=== PATIENT | female | born 1950 | race Caucasian/White ===

== ENCOUNTER → 2017-04-26 | Outpatient (CLI) | payer OTHER ==
[~2017-04-26] MED LIST: ADVAIR HFA 230M12 GM INH; ADVAIR HFA115 MCG/21; CALCIUM 500 +1 EAC5 PO; CENTRUM SILVER1 EAC4 PO; FERROUS SULFAT134 M1 PO; NORCO 5-325 TA1 EACH PO; NORVASC5 MG PO; OMEPRAZOLE20 M1 PO; PREVALITE PACKET4 GM PO; PRINIVIL20 M1 PO; PROTONIX40 M1 PO; VITAMIN B-121000 MC3 PO; VITAMIN D1000 UNI1 PO; WELLBUTRIN XL300 MG PO
--- NOTE | ~2017-04-26 | EKG ---
[address] [address] ELECTROCARDIOGRAM REPORT Name: MACIE PATINO Room #: [facility]#: [id number] Admission: 04/26/17 Attend Phys: Hunter Katz, Discharge: Date of : 54 Report #: [id number] THIS REPORT FOR: //name// [facility] Test Date: 2017-04-26 Test Time: 07:50:23 Pat Name: MACIE PATINO Department: Room: Gender: F Assistant Activities Director: DOLORES : 1950 Requested By: Hunter Katz Order Number: [id number] MD: Jaime Syed Measurements Intervals [place] Rate: 86 P: -11 ID: [id number] QRS: 58 QRSD: 88 T: 32 QT: 359 QTc: 430 Interpretive Statements Sinus rhythm No significant abnormality Compared to ECG 07/05/2014 06:51:31 Sinus tachycardia no longer present Electronically Signed On 04-26-2017 8:32:56 CDT by Jaime Syed [email or web address] <ELECTRONICALLY SIGNED> By: Jaime Syed MD, [facility] 04/26/17 0832 0750 0750 Jaime Syed MD, FACC /EPI
== END ==
LOC: RAD 07:16
DX: Z01.818 Encounter for other preprocedural examination (principal); J98.11 Atelectasis; M20.22 Hallux rigidus, left foot; M25.775 Osteophyte, left foot; M25.572 Pain in left ankle and joints of left foot

== ENCOUNTER 2017-05-06 05:22 | Day surgery (SDC) | payer OTHER ==
[~2017-05-06] VITALS: Ht 157.5 cm; Wt 73.9 kg
[~2017-05-06 05:22] MED LIST changes: -ADVAIR HFA 230M12 GM INH; -CENTRUM SILVER1 EAC4 PO; -PROTONIX40 M1 PO; -VITAMIN B-121000 MC3 PO; -VITAMIN D1000 UNI1 PO
[2017-05-06 07:37] VITALS: BP 141/92
== END 2017-05-06 10:50 | disposition home or self-care (01) ==
LOC: OR 05:22 → TBA 05:23 → OR 10:50
DX: M20.22 Hallux rigidus, left foot (principal); M25.775 Osteophyte, left foot; M25.572 Pain in left ankle and joints of left foot; I10 Essential (primary) hypertension; J45.909 Unspecified asthma, uncomplicated; K21.9 Gastro-esophageal reflux disease without esophagitis; M19.90 Unspecified osteoarthritis, unspecified site; E66.09 Other obesity due to excess calories; Z79.899 Other long term (current) drug therapy; Z90.710 Acquired absence of both cervix and uterus; Z98.890 Other specified postprocedural states; Z87.442 Personal history of urinary calculi; Z96.653 Presence of artificial knee joint, bilateral
CPT/HCPCS: 50010; 50101; 50331; 50386; 53010; 55430; 56526; 57091; 62110; 62850; 70005

== ENCOUNTER → 2017-07-08 | Outpatient (CLI) | payer OTHER | LOC: RAD 07:59 | DX: Z12.31 Encounter for screening mammogram for malignant neoplasm of breast (principal) ==

== ENCOUNTER → 2017-10-01 | Outpatient (CLI) | payer OTHER ==
[~2017-10-01] VITALS: Ht 154.9 cm; Wt 75.3 kg
[~2017-10-01] MED LIST changes: +ADVAIR HFA 230M12 GM INH
--- NOTE | ~2017-10-01 | P ---
[facility] [place] [address] PROCEDURE REPORT Name: MACIE PATINO Room #: REG [facility]#: [id number] Admission: 10/01/17 Attend Phys: Mathew Hoffman MD Discharge: Date of : 54 Report #: [id number] THIS REPORT FOR: //name// CC: Jovany Hoffman BRIEF HISTORY: The patient is a 67-year-old woman with history of reflux disease. Good number of years ago, she had a repair of hiatus hernia and David fundoplication. However, she has developed reflux symptoms and there has been a breakdown of her previous surgical repairs. She presents for recurrent solid food dysphagia with last dilation about 2 years ago. She also does have reflux symptoms and uses omeprazole about 3 times weekly. PREOPERATIVE DIAGNOSIS: Dysphagia and reflux. POSTOPERATIVE DIAGNOSES: 1. Distal esophageal ulcer, gastroesophageal junction. 2. Large hiatus hernia, 6-7 cm. 4. Foreshortened esophagus secondary to her hiatus hernia. 5. Dysphagia. MEDICATIONS: Deep sedation with propofol per Anesthesia. SPECIMEN: Biopsies of esophageal ulcer. ESTIMATED BLOOD LOSS: 3 mL. PROCEDURE: EGD with biopsy and Savary dilation of esophagus over a guidewire. FINDINGS: Prior to propofol sedation, procedure of upper endoscopy and dilation was reviewed with the patient as well as potential risks and its complications. She indicates she understands and desires that we proceed. DESCRIPTION OF PROCEDURE: With the patient in left decubitus position, the Olympus video endoscope was inserted in the cervical esophagus under direct vision without difficulty. Examination of this organ through its entire length revealed normal esophageal mucosa in the mid to proximal esophagus. Distally, there was noted to be tortuosity in esophagus with the GE junction at about 29 cm. An esophageal ulcer was seen at the GE junction, it was of moderate depth and had a smooth and benign appearance. Biopsies were obtained. The scope was advanced to the tortuous GE junction into a moderately large hiatus hernia, which was at least 6 cm in greatest dimension. Mucosa and hernia was unremarkable. Upon retroflexion, no mass lesions were seen. The scope was advanced in the distal stomach, was examined on end view as well as retroflexed views. The mucosa was normal. The pylorus, duodenal bulb and postbulbar duodenal sweep down to the third portion were unremarkable. The duodenal [address] [address] PROCEDURE REPORT Name: ISABELMatthewMACIE Room #: REG [facility]#: [id number] Admission: 10/01/17 Attend Phys: Mathew Hoffman MD Discharge: Date of : 54 Report #: [id number] papilla was identified and noted to be unremarkable. At that point, the scope was slowly withdrawn and careful circumferential views confirmed the above finding. As we withdrew the scope, a guidewire was inserted and the scope was withdrawn over the wire. We then advanced a 17 mm Savary dilator over the guidewire and passed it the entire length without difficulty. Dilator and wire were withdrawn. The patient tolerated the procedure well. CONDITION OF THE PATIENT UPON DISCHARGE: Following procedure, the patient drowsy, aroused, conversant and will be discharged home when fully ambulatory. INSTRUCTIONS TO THE PATIENT AND FAMILY AT THE TIME OF DISCHARGE: We will follow up on biopsies obtained today. Ulcers are likely result of poorly controlled reflux in spite of her previous surgery. I did not see a definite stricture on exam today. Her dysphagia may in part be related to a tortuous esophagus, which is secondary to her hiatus hernia. At this point in time, we will have her use pantoprazole 40 mg daily for at least 8 weeks. Thereafter, she can try to reduce as tolerated, but should take the minimal dose to completely control her symptoms. Repeat surgery would be a consideration as well, which may be helpful to her. If she does not have improvement of symptoms or recurrence of symptoms, she should return to the office for followup. By: 0919 1435 Mathew Hoffman MD /sher
== END | disposition home or self-care (01) ==
LOC: GI 07:20
DX: K22.10 Ulcer of esophagus without bleeding (principal); K44.9 Diaphragmatic hernia without obstruction or gangrene; K22.8 Other specified diseases of esophagus; R13.19 Other dysphagia; I10 Essential (primary) hypertension; J45.909 Unspecified asthma, uncomplicated; F41.9 Anxiety disorder, unspecified; F32.9 Major depressive disorder, single episode, unspecified; M19.90 Unspecified osteoarthritis, unspecified site; G47.33 Obstructive sleep apnea (adult) (pediatric); Z98.890 Other specified postprocedural states; Z87.442 Personal history of urinary calculi; Z96.653 Presence of artificial knee joint, bilateral; Z90.710 Acquired absence of both cervix and uterus

== ENCOUNTER 2017-12-01 05:23 | Day surgery (SDC) | payer OTHER ==
[~2017-12-01] VITALS: Ht 157.5 cm; Wt 76.2 kg
[~2017-12-01 05:23] MED LIST changes: +CENTRUM SILVER1 EAC4 PO; +PROTONIX40 M1 PO; +VITAMIN B-121000 MC3 PO; +VITAMIN D1000 UNI1 PO
[2017-12-01 07:00] VITALS: BP 123/94
[2017-12-01 07:16] LABS: CALCIUM 9.7 mg/dL (8.5-10.1); POTASSIUM 4.3 mmol/L (3.5-5.1)
== END 2017-12-01 11:08 | disposition home or self-care (01) ==
LOC: TBA 05:23 → OR 05:23
PROVIDERS: Anesthesiology
DX: M20.21 Hallux rigidus, right foot (principal); M21.621 Bunionette of right foot; M25.774 Osteophyte, right foot; M25.571 Pain in right ankle and joints of right foot; I10 Essential (primary) hypertension; J45.909 Unspecified asthma, uncomplicated; K21.9 Gastro-esophageal reflux disease without esophagitis; F32.9 Major depressive disorder, single episode, unspecified; F41.9 Anxiety disorder, unspecified; G47.33 Obstructive sleep apnea (adult) (pediatric); Z90.710 Acquired absence of both cervix and uterus; Z96.653 Presence of artificial knee joint, bilateral; Z87.442 Personal history of urinary calculi; Z86.2 Personal history of diseases of the blood and blood-forming organs and certain disorders involving the immune mechanism; Z88.0 Allergy status to penicillin; Z88.8 Allergy status to other drugs, medicaments and biological substances; Z79.899 Other long term (current) drug therapy
CPT/HCPCS: 50010; 50101; 50386; 53341; 55430; 56524; 56526; 57091; 57178; 62110; 62850; 70005

== ENCOUNTER → 2018-02-10 | Outpatient (CLI) | payer OTHER | LOC: MRI 07:26 | DX: M19.071 Primary osteoarthritis, right ankle and foot (principal); M20.22 Hallux rigidus, left foot; R60.0 Localized edema; F43.8 Other reactions to severe stress; Z98.890 Other specified postprocedural states ==

== ENCOUNTER → 2018-04-13 | Outpatient (CLI) | payer OTHER | LOC: MRI 07:18 | DX: M47.816 Spondylosis without myelopathy or radiculopathy, lumbar region (principal); M51.27 Other intervertebral disc displacement, lumbosacral region; G89.29 Other chronic pain; R32 Unspecified urinary incontinence; M53.3 Sacrococcygeal disorders, not elsewhere classified ==

== ENCOUNTER → 2018-04-30 | Outpatient (CLI) | payer OTHER ==
--- NOTE | 2018-05-02 10:08 | SLE ---
[facility] [place] [address] POLYSOMNOGRAPHY STUDY Name: MACIE PATINO Room #: REG [facility]#: [id number] Admission: 04/30/18 ������������������ Attend Phys: Don Chan MD Discharge: ������������������ Date of : 54 Report #: [id number] THIS REPORT FOR: //name// CC: Jovany Chan MD DATE OF SERVICE: 04/30/2018 ATTENDING PHYSICIAN: Dr. Don Chan. The patient is a 67-year-old who weighs 169 pounds with a BMI of 31.9. The patient's [place] score was 11. The patient underwent a sleep study at [facility]. This was a diagnostic study. During the night study, the patient spent 465 minutes in bed and slept for 178 minutes with a poor sleep efficiency of 38%. Sleep latency was prolonged at 85 minutes with a REM latency of 359 minutes, which was prolonged as well. Overall sleep architecture showed increased stage 1 sleep, reduced stage 2 sleep, absent N3 sleep and reduced REM sleep, which was only 9% of the total sleep time. During the night study, the patient had no obstructive, mixed or central apneas. There were 33 hypopneas. The patient's apnea-hypopnea index was 11 per hour with a REM index of 25 per hour. The patient's supine index was 22 per hour. EKG monitoring revealed an average heart rate of 84 beats per minute with no arrhythmias observed. PLMS were seen at an index of 68 per hour and 14.8 per hour caused EEG arousals. Nocturnal oximetry study revealed an average oxygen saturation of 95% with the lowest of 89%. Only 0.1 minutes were spent in oxygen saturation of less than 89%. Due to low AHI and poor sleep efficiency, the patient did not meet the split night criteria for CPAP initiation. IMPRESSION: 1. Mild sleep apnea-hypopnea syndrome with moderate increase during supine and REM sleep. Total apnea-hypopnea index is 11 per hour with a REM apnea-hypopnea index of 25 per hour and a supine apnea-hypopnea index of 22 per hour. 2. Severe periodic limb movements of sleep. 3. Severely reduced sleep efficiency of only 38% due to sleep onset and sleep maintenance insomnia. 4. No clinically significant nocturnal hypoxia. [address] [address] POLYSOMNOGRAPHY STUDY Name: MACIE PATINO Room #: REG [facility]#: [id number] Admission: 04/30/18 ������������������ Attend Phys: Don Chan MD Discharge: ������������������ Date of : 54 Report #: [id number] RECOMMENDATIONS: 1. The patient's sleep efficiency was poor which could have underestimated the severity of sleep apnea. Patient is clinically symptomatic and has wbiy-uw-ayaikfjy sleep apnea. I would recommend treating the patient's sleep apnea with either oral appliance or a trial of CPAP titration. 2. Avoid supine sleep. 3. If the patient undergoes CPAP titration, then follow up in 4-6 weeks to assess compliance and to document clinical improvement. 4. Weight loss is advised. 5. Avoid [employer] depressants. 6. Cautioned regarding driving until symptoms of sleep apnea have resolved with above recommendations. 7. The patient's insomnia should also be followed up. If it persists despite treatment of the patient's underlying sleep apnea, then it should be treated according to the etiology. 8. The patient should also be further evaluated for symptoms of restless legs during the day. ��������������������������������������������� <ELECTRONICALLY SIGNED> ���������������������������������������� By: Tono Philippe MD ��������������������������������������������� 05/02/18 1008 1653 1703 Tono Philippe MD /nt
== END ==
LOC: SLEEPLAB 16:14
DX: G47.33 Obstructive sleep apnea (adult) (pediatric) (principal); G47.61 Periodic limb movement disorder; Z88.8 Allergy status to other drugs, medicaments and biological substances; Z88.0 Allergy status to penicillin

== ENCOUNTER → 2018-05-02 | Outpatient (CLI) | payer OTHER | LOC: MRI 13:56 | DX: M47.14 Other spondylosis with myelopathy, thoracic region (principal); M47.812 Spondylosis without myelopathy or radiculopathy, cervical region; M48.03 Spinal stenosis, cervicothoracic region; M50.221 Other cervical disc displacement at C4-C5 level; M25.78 Osteophyte, vertebrae ==

== ENCOUNTER → 2018-05-17 | Outpatient (CLI) | payer OTHER ==
--- NOTE | 2018-05-17 10:45 | 2DMMODE ---
[facility] [address] [place] [address] 2 D/M-MODE ECHOCARDIOGRAM Name: MACIE PATINO Room #: REG [facility]#: [id number] ������������� Admission: 05/17/18 ������������� Attend Phys: Mau Dawson Discharge: ��� ������������� ��� Date of : 54 Date of Service: 05/17/18 1045 �� Report #: [id number] �������� ��������������������������������������������[id number] THIS REPORT FOR: //name// APPROVED REPORT Study performed: 05/17/2018 10:08:17 EXAM: Comprehensive 2D, Doppler, and color-flow Echocardiogram Patient Location: Out-Patient Status: routine BSA: 1.76 HR: 93 bpm BP: 124/90 mmHg Rhythm: NSR Other Information Study Quality: Adequate Indications SVT. Pre-Op ablation. Hx: HTN 2D Dimensions RVDd: 31.55 mm IVSd: 10.35 (7-11mm) LVOT Diam: 18.85 (18-24mm) LVDd: 43.41 mm PWd: 10.12 (7-11mm) Ascending Ao: 33.96 (22-36mm) LVDs: 31.04 (25-40mm) Aortic Root: 32.70 mm Volumes Left Atrial Volume (Systole) Single Plane 4CH: 32.94 mL Single Plane 2CH: 32.76 mL LA ESV Index: 20.00 mL/m2 Aortic Valve AoV Peak Hero.: 1.43 m/s AO Peak Gr.: 8.19 mmHg LVOT Max P.88 mmHg LVOT Max V: 1.31 m/s SHAMAR Vmax: 2.56 cm2 Mitral Valve E/A Ratio: 0.9 MV Decel. Time: 152.58 ms MV E Max Hero.: 0.74 m/s [facility] [address] [place] [address] 2 D/M-MODE ECHOCARDIOGRAM Name: CAREYMACIE K Room #: [facility]#: [id number] ������������� Admission: 05/17/18 ������������� Attend Phys: Mau Dawson Discharge: ��� ������������� ��� Date of : 54 Date of Service: 05/17/18 1045 �� Report #: [id number] �������� ��������������������������������������������[id number] MV A Hero.: 0.86 m/s MV PHT: 44.25 ms IVRT: 96.89 ms Pulmonary Valve PV Peak Hero.: 0.99 m/s PV Peak Gr.: 3.92 mmHg Pulmonary Vein P Vein S: 0.84 m/s P Vein A: 0.40 m/s P Vein D: 0.42 m/s P Vein A Dur.: 83.0 msec P Vein S/D Ratio: 2.00 Tricuspid Valve TR Peak Hero.: 2.21 m/s RAP Estimate: 5.00 mmHg TR Peak Gr.: 19.48 mmHg PA Pressure: 24.00 mmHg Left Ventricle The left ventricle is normal size. There is normal LV segmental wall motion. Mild basal septal hypertrophy is present. Left ventricular systolic function is normal. LVEF is 55%. Mild diastolic dysfunction is present (impaired relaxation pattern). Right Ventricle The right ventricle is normal size. The right ventricular systolic function is normal. Atria The left atrium size is normal. The right atrium size is normal. Aortic Valve Aortic valve is trileaflet, mildly thickened. No aortic regurgitation is present. There is no aortic valvular stenosis. Mitral Valve The mitral valve is normal in structure. There is no mitral valve regurgitation noted. No evidence of mitral valve stenosis. Tricuspid Valve The tricuspid valve is normal in structure. Mild tricuspid regurgitation. Estimated PAP is 25mmHg. Pulmonic Valve The pulmonary valve is normal in structure. Trace pulmonic regurgitation. [address] [address] 2 D/M-MODE ECHOCARDIOGRAM Name: MACIE PATINO Jenna [facility] [id number] ������������� Admission: 05/17/18 ������������� Attend Phys: [facility]au Peña [facility] Discharge: ��� ������������� ��� Date of : 54 Date of Service: 05/17/18 1045 �� Report #: [id number] �������� ��������������������������������������������[id number] [employer] The aortic root is normal in size. The ascending aorta is normal in size. IVC is normal in size and collapses >50% with inspiration. Pericardium There is no pericardial effusion. <Conclusion> The left ventricle is normal size. Left ventricular systolic function is normal. LVEF is 55%. Mild diastolic dysfunction is present (impaired relaxation pattern). The right ventricle is normal size. The left atrium size is normal. Aortic valve is trileaflet, mildly thickened. There is no aortic valvular stenosis. There is no mitral valve regurgitation noted. Mild tricuspid regurgitation. Estimated PAP is 25mmHg. The aortic root is normal in size. There is no pericardial effusion. ��������������������������������������������� <ELECTRONICALLY SIGNED> ���������������������������������������� By: Sergey Garcia MD, FACC ��������������������������������������������� 05/17/18 1045 1045 1045 Sergey Garcia MD, FACC /INF
== END ==
LOC: CV 09:55
DX: I07.1 Rheumatic tricuspid insufficiency (principal); I11.9 Hypertensive heart disease without heart failure

== ENCOUNTER → 2018-06-09 | Outpatient (CLI) | payer OTHER ==
[~2018-06-09] VITALS: Ht 154.9 cm; Wt 77.1 kg
[~2018-06-09] MED LIST changes: +AMITRIPTYLINE H10 M3 PO; +COLESTIPOL HCL1 G1 PO; +MOBIC7.5 MG PO; +OXYBUTYNIN 5 MG5 M2 PO; +ZANTAC 150MG T150 MG PO
--- NOTE | ~2018-06-09 | P ---
[facility] [place] [address] PROCEDURE REPORT Name: MACIE PATINO Room #: REG [facility]#: [id number] Admission: 06/09/18 ������������������ Attend Phys: Mau Dawson MD Discharge: ������������������ Date of : 54 Report #: [id number] THIS REPORT FOR: //name// CC: Mau Nova PREOPERATIVE DIAGNOSIS: Supraventricular tachycardia. POSTOPERATIVE DIAGNOSES: 1. Typical atrioventricular keisha reentrant tachycardia. 2. Atypical atrioventricular keisha reentrant tachycardia. HISTORY: The patient is a 67-year-old female with a history of palpitations with evidence of SVT on a recent rn cardiac rehab that is consistent with AV keisha reentrant tachycardia. She is here for EP study and possible ablation. PROCEDURES PERFORMED: 1. SVT ablation, CPT code 37677. 2. EP with left atrial pacing and recording, CPT code 92724. 3. Programmed stimulation pacing after IV drug infusion, CPT code 06396. 4. 3D mapping, CPT code 59499. ANESTHESIA: The patient underwent MAC anesthesia with no anesthesia related complications. DESCRIPTION OF PROCEDURE: The patient underwent informed consent. We discussed the details of the procedure including the risks, which include but not limited to bleeding, vascular damage, cardiac perforation, stroke, [place] as well as damage to the kake conduction system. She understood these risks and is willing to proceed. The patient was brought to the EP laboratory in a fasting and unsedated state, prepped and draped in a sterile fashion. I injected lidocaine to the bilateral groin regions, obtained access to the bilateral femoral veins and I placed an 8 and 6-Gabonese short sheath in the right femoral vein and a 6 and 7-Gabonese short sheath in the left femoral vein using the modified Seldinger technique. Next, under fluoroscopy, I placed a decapolar catheter easily in the coronary sinus and 3 quadripolar catheters at the HRA, His and RV positions. While placing catheters, the patient did go into SVT and this was consistent with AV keisha reentrant tachycardia. I was able to perform ventricular entrainment and there was evidence of a VAHV response. I was able to terminate this tachycardia with pacing. This tachycardia demonstrated a tachycardia cycle length of 435 milliseconds, a septal VA time of 35 milliseconds and again a VAHV response was obtained with ventricular entrainment. Post-termination of this tachycardia, she was in sinus rhythm with sinus cycle length of 600 milliseconds, LA interval 140 milliseconds, QRS duration 80 milliseconds, QT interval 350 milliseconds, AH interval 80 milliseconds, HV interval 40 milliseconds. Atrial pacing was [facility] [address] [place] [address] PROCEDURE REPORT Name: MACIE PATINO Room #: REG [facility]#: [id number] Admission: 06/09/18 ������������������ Attend Phys: Mau Dawson MD Discharge: ������������������ Date of : 54 Report #: [id number] performed and AV block was noted at 370 milliseconds. Single AV keisha echoes were delivered and then the patient went into SVT #2. This SVT demonstrated a tachycardia cycle length of 520 milliseconds, a septal VA time of 40 milliseconds and ventricular entrainment showed a VAHV response and PPI minus tachycardia cycle length of 300 milliseconds. This second SVT was consistent with atypical AV keisha reentrant tachycardia. Next, ventricular pacing was performed and VA block was noted at 400 milliseconds. Ventricular ERP was noted at 220 milliseconds at a [address] cycle length. Thus, with ventricular entrainment, I would see frequent single AV keisha echoes and occasionally this would induce AVNRT. With additional pacing, I induced a third SVT. This demonstrated a tachycardia cycle length of 400 milliseconds, a septal VA time of 280 milliseconds and this tachycardia did not sustain as easily. It was inducible and would frequently terminate within it. It appeared that this was likely another atypical form of AV keisha reentrant tachycardia. As such, a diagnosis of both typical and atypical AV keisha reentrant was made. 3D MAPPING AND ABLATION: I removed my HRA catheter and placed a SR0 sheath and a 4-mm Biosense Payton ablation catheter into the right atrium. I created a detailed 3D geometry of the right atrium with specific emphasis of the His bundle, slow pathway region and coronary sinus ostium. Of note, finding the His was somewhat challenging, eventually was able to find a small His. While trying to find this His, the patient did go back into this third form of AV keisha reentrant tachycardia. We would try to terminate this ventricular pacing and it was easily reinducible. Eventually, I was able to terminate it with just straight atrial burst pacing. Next, ablation was performed at 50 capellan and 55 degrees. The first ablation lesion resulted in junctionals followed by induction of SVT #3, then a few junctional beats and then induction of SVT #2, followed by recurrent junctionals. I performed a total of 7 ablation lesions. All of these lesions except one of them had nice slow junctionals. I did perform one additional burn that was slightly within the coronary sinus ostium and again they were in very good junctionals during this burn. As such, we had several great means and a repeat testing was not performed. Post-ablation, the basic EP study was performed. Pacing was performed from the right atrium and from the left atrium from the decapolar catheter. AV block was now noted at 390 milliseconds. We did not have a long AH interval like we did previously. AV keisha ERP was noted at 340 milliseconds at a [address] cycle length. Again, previously we could easily induce AVNRT and now we could not get a single AV keisha echo. Ventricular pacing was performed and VA block was noted at 580 milliseconds and VA ERP was greater than 550 milliseconds at a [address] cycle length. Again now, there was no evidence of retrograde AV keisha echoes. Isoproterenol infusion: The patient was initiated on 2 mcg per minute of isoproterenol. AV block was now noted at 260 milliseconds. AV keisha ERP was noted at 310 milliseconds at [address] cycle length. Ventricular ERP was noted at 200 milliseconds at a [address] [facility] [address] [place] [address] PROCEDURE REPORT Name: MACIE PATINO Room #: REG [facility]#: [id number] Admission: 06/09/18 ������������������ Attend Phys: Mau Dawson MD Discharge: ������������������ Date of : 54 Report #: [id number] cycle length. Again, there was no echoes nor was there any inducible SVT. Isoproterenol was turned off and we continued testing as the medications wore off and we could not induce any further arrhythmias. Post-ablation, the patient was in sinus rhythm with a sinus cycle length of 575 milliseconds, LA interval 145 milliseconds, QRS duration 80 milliseconds, and QT interval 360 milliseconds. As such, all catheters and sheaths were pulled. Hemostasis obtained. The patient awoke neurologically and hemodynamically intact. CONCLUSIONS: 1. Successful induction of typical AV keisha reentrant tachycardia in 2 different forms of atypical AV keisha reentrant tachycardia. 2. Successful ablation of AVNRT. 3. Normal SA keisha function. 4. Normal AV keisha function. 5. Normal His-Purkinje function. 6. No other inducible arrhythmias on or off isoproterenol. ��������������������������������������������� ���������������������������������������� By: ��������������������������������������������� [id number] Mau Dawson MD /nt
[2018-06-09 07:34] LABS: HEMATOCRIT 43.7 % (37.0-47.0); HEMOGLOBIN 14.5 gm/dL (12.0-15.0); MCH 28.8 pg (26.0-34.0); MCHC 33.2 g/dL (28.0-37.0); MCV 86.7 fL (80.0-100.0); RBC 5.05 mil/uL (4.20-5.00); RDW 14.3 % (10.5-14.5); WBC 7.3 thou/uL (4.0-11.0)
[2018-06-09 07:41] LABS: CALCIUM 9.2 mg/dL (8.5-10.1); CREATININE 0.9 mg/dL (0.6-1.0)
[2018-06-09 07:43] VITALS: BP 138/87
[2018-06-09 07:52] LABS: PROTIME 10.4 Seconds (9.3-11.4)
== END | disposition home or self-care (01) ==
LOC: CATH 06:52
PROVIDERS: Internal Medicine Cardiovascular Disease
DX: I47.1 Supraventricular tachycardia (principal); R00.2 Palpitations; I10 Essential (primary) hypertension; J45.909 Unspecified asthma, uncomplicated; M19.90 Unspecified osteoarthritis, unspecified site; K21.9 Gastro-esophageal reflux disease without esophagitis; Z90.710 Acquired absence of both cervix and uterus; Z96.653 Presence of artificial knee joint, bilateral; Z87.442 Personal history of urinary calculi; Z86.2 Personal history of diseases of the blood and blood-forming organs and certain disorders involving the immune mechanism; Z88.0 Allergy status to penicillin; Z88.8 Allergy status to other drugs, medicaments and biological substances; Z79.899 Other long term (current) drug therapy
CPT/HCPCS: 62110; 62900; 70005

== ENCOUNTER → 2018-07-11 | Outpatient (CLI) | payer OTHER | LOC: RAD 01:22 | DX: Z12.31 Encounter for screening mammogram for malignant neoplasm of breast (principal) ==

== ENCOUNTER → 2018-08-19 | Outpatient (CLI) | payer OTHER ==
[2018-08-19 10:23] LABS: CREATININE 0.8 mg/dL (0.6-1.0)
== END ==
LOC: CAT 09:49 → LABMALL 09:49
PROVIDERS: Nurse Practitioner
DX: J84.10 Pulmonary fibrosis, unspecified (principal); R91.8 Other nonspecific abnormal finding of lung field; K44.9 Diaphragmatic hernia without obstruction or gangrene

== ENCOUNTER → 2018-10-21 | Outpatient (CLI) | payer OTHER ==
[~2018-10-21] VITALS: Ht 157.5 cm; Wt 73.9 kg
--- NOTE | ~2018-10-21 | P ---
[facility] [place] [address] [place] [address] PROCEDURE REPORT Name: MACIE PATINO Room #: REG [facility]#: [id number] Admission: 10/21/18 ������������������ Attend Phys: Mathew Hoffman MD Discharge: ������������������ Date of : 54 Report #: [id number] THIS REPORT FOR: //name// CC: Benjamin Nova MD OUTPATIENT UPPER ENDOSCOPY REPORT BRIEF HISTORY: The patient is a 68-year-old woman with longstanding history of reflux disease and previous David fundoplication. She has had previous endoscopies, which reveals a large hiatus hernia and a tortuous distal esophagus. She has severe reflux symptoms. She presents today for worsening reflux. She reports she had to stop the pantoprazole because of diarrhea, at this time only taking ranitidine. PREOPERATIVE DIAGNOSIS: Reflux disease, poorly controlled with solid food dysphagia. POSTOPERATIVE DIAGNOSES: 1. Grade B erosive esophagitis. 2. Tortuous distal esophagus. 3. Solid food dysphagia. 4. Large hiatus hernia. 5. Diffuse gastritis. MEDICATIONS: Deep sedation with propofol per anesthesia. SPECIMEN: Biopsies of distal esophagus. ESTIMATED BLOOD LOSS: 3 mL. PROCEDURE: EGD with biopsies as well as insertion of guidewire and dilation over a guidewire. FINDINGS: Prior to propofol sedation, the procedure of upper endoscopy and dilation was discussed with the patient as well as potential risks and its complications. She indicates she understands and desires to proceed. DESCRIPTION OF PROCEDURE: With the patient in left lateral decubitus position, the Olympus video endoscope was inserted in the cervical esophagus under direct vision without difficulty. Examination of this organ throughout its entire length revealed normal mucosa in the proximal and mid esophagus. Distally, the esophagus was very tortuous. There were scattered erosions. There may be scattered areas of squamous mucosa, but it is difficult to determine whether this is esophagitis or Renteria mucosa. The squamocolumnar junction was [facility] [address] [place] [address] PROCEDURE REPORT Name: MACIE PATINO Room #: REG [facility]#: [id number] Admission: 10/21/18 ������������������ Attend Phys: Mathew Hfofman MD Discharge: ������������������ Date of : 54 Report #: [id number] identified at about 29 cm. This area was eroded consistent with grade B erosive esophagitis. The scope was advanced into a large hiatus hernia. The hernia was quite voluminous. The gastroesophageal junction was felt to be in about 35 cm, which indicates she has at least a 6 cm sliding type hernia. There was some fluid pooling in the hernia, but no ulcers or erosions were seen. The scope was advanced in the stomach, was examined on end view as well as retroflexed views. She was noted to have gastritis, which has been previously described. No ulcers or erosions were seen. Upon retroflexion, no other abnormalities were seen. The pylorus, duodenal bulb and post-coronary sweep were all inspected and noted to be unremarkable. At that point, the scope was slowly withdrawn and careful circumferential views were obtained. Again, biopsies obtained of the distal esophagus. Upon withdrawal of the scope, a guidewire was inserted with the tip of the duodenum. The scope was withdrawn over the guidewire. Subsequently, a 51-Mongolian Tijerina dilator was advanced over the wire without difficulty. The patient tolerated the procedure well. CONDITION OF THE PATIENT UPON DISCHARGE: Following the procedure, the patient was drowsy, she will be discharged home when fully ambulatory. INSTRUCTIONS TO THE PATIENT AND FAMILY AT THE TIME OF DISCHARGE: The patient has poorly controlled reflux with evidence of esophagitis. She is concerned about long-term use of PPI as well as her continued symptoms. Even with PPIs, her symptoms have not been well controlled. Since she had problems with diarrhea with the pantoprazole, we will try Nexium. She believes she has had Nexium in the past, but again she is concerned about long-term consequences of PPIs. We will have her use 40 mg twice daily. She also may use ranitidine 300 mg at bedtime. She is to follow up with Dr. Benjamin Tiwari for discussion of surgical management of her large hiatus hernia and anti-reflux procedure. She is interested in the Linx procedure. ��������������������������������������������� ���������������������������������������� By: ��������������������������������������������� [id number] Mathew Hoffman MD /sher
--- NOTE | 2018-10-25 16:06 | PATH ---
[facility] [address] [place] [address] PATHOLOGY RPT PROCEDURE Name: MARY LOU PATINO Jenna Room #: REG [facility] Christian[facility].#: [id number] ������������������ Admission: 10/21/18 ������������������ Date of : 54 Discharge: Report #: [id number] Path Case #: [id number] [facility] Accession Number: [id number] . 01 Material submitted: . esophagus - BX DISTAL ESOPHAGUS. Modifiers: distal . 01 Clinical history: . Pre-OP DX: Dysphagia Post-OP DX: Esophagitis, large hiatal hernia . 02 Diagnosis: Squamous mucosa, distal esophagus, endoscopic biopsy: - Fibrinopurulent material, consistent with ulceration. - Detached fragments of squamous mucosa showing mild esophagitis as well as features compatible with reflux esophagitis. - Negative for intestinal metaplasia or dysplasia. LBQ 10/24/2018 1411 Local . 02 Comment: Due to the finding of ulceration, GMS fungal special stain, CMV, and HSV-1 are ordered. The results of these will be reported in an addendum to follow. (IUV/db; 10/24/2018) . 02 Addendum: . This addendum is issued subsequent to performing properly controlled GMS fungal special stain, *CMV immunohistochemical stain, and *HSV1 immunohistochemical stain on block A1. They are interpreted as follows: . GMS fungal special stain: No definite fungal elements identified within the intact epithelium; background debris present within fibrinopurulent material. . *CMV: No definite CMV viral inclusions present. . *HSV-I: No definite HSV viral inclusions identified. . (IUV:shi; 10/25/2018) . . . *This test was developed and its performance characteristics determined by [employer]. It has not been cleared or approved by the U.S. Food and Drug Administration. The FDA has determined that such clearance or approval is not necessary. This test is used for clinical purposes. It should not be regarded as investigational or for research. This laboratory is certified [address] [address] PATHOLOGY RPT PROCEDURE Name: MARY LOU PATINO Room #: REG [facility].#: [id number] ������������������ Admission: 10/21/18 ������������������ Date of : 54 Discharge: Report #: [id number] Path Case #: [id number] under the Clinical Laboratory Improvement Amendments of 1988 (CLIA) as qualified to perform high complexity clinical laboratory testing. . . . Professional services performed by [facility] at [facility], [address], [place] [address]. Technical services performed by [facility] at [address] [place] [address], [address], [place] [address]. QMS/10/25/2018 Addendum Electronically Signed by Ngozi Moreira MD, Pathologist . 02 Electronically signed: . Ngozi Moreira MD, Pathologist NPI- [id number] . 01 Gross description: . Received in formalin labeled "Dost, Mary Lou, BX distal esophagus, rule out Renteria's," are multiple segments of banks soft tissue measuring 1.0 x 0.3 x 0.1 cm in aggregate dimensions. The specimen is filtered and entirely submitted in cassette A1. (TSD; 10/21/2018) TOB/TOB 10/21/2018 2140 Local . 02 Pathologist provided ICD-10: K22.10, K21.0 . 02 CPT . 036122, 979800, R81277, W88059 Specimen Comment: A courtesy copy of this report has been sent to Specimen Comment: [phone], . Specimen Comment: Report sent to / DR ISLAS Performed at: [address] [facility], [place], [place] [id number] MD Kenan Willis MD Phone: [phone] Performed at: 02 [facility] [address] [facility], [place], [place] [id number] MD Ngozi Moreira MD Phone: [phone]
== END | disposition home or self-care (01) ==
LOC: GI 08:15
DX: K29.70 Gastritis, unspecified, without bleeding (principal); K22.10 Ulcer of esophagus without bleeding; K21.0 Gastro-esophageal reflux disease with esophagitis; K22.8 Other specified diseases of esophagus; K44.9 Diaphragmatic hernia without obstruction or gangrene; R13.12 Dysphagia, oropharyngeal phase; I10 Essential (primary) hypertension; D64.9 Anemia, unspecified; J45.909 Unspecified asthma, uncomplicated; G47.30 Sleep apnea, unspecified; M19.90 Unspecified osteoarthritis, unspecified site; Z87.442 Personal history of urinary calculi; Z90.710 Acquired absence of both cervix and uterus; Z96.653 Presence of artificial knee joint, bilateral; Z98.890 Other specified postprocedural states; Z88.0 Allergy status to penicillin; Z88.8 Allergy status to other drugs, medicaments and biological substances; Z79.899 Other long term (current) drug therapy
CPT/HCPCS: 62110; 62900

== ENCOUNTER → 2018-12-06 | Outpatient (CLI) | payer OTHER | END | disposition home or self-care (01) | LOC: GI 08:07 | DX: R13.19 Other dysphagia (principal); I10 Essential (primary) hypertension; Z79.891 Long term (current) use of opiate analgesic; Z98.890 Other specified postprocedural states; Z88.8 Allergy status to other drugs, medicaments and biological substances; Z79.899 Other long term (current) drug therapy ==

== ENCOUNTER → 2019-01-16 | Outpatient (CLI) | payer OTHER ==
[~2019-01-16] VITALS: Ht 157.5 cm; Wt 73.5 kg
[~2019-01-16] MED LIST changes: +MYRBETRIQ50 MG PO; +NEURONTIN 300300 M1 PO
== END | disposition home or self-care (01) ==
LOC: GI 08:23
DX: R12 Heartburn (principal); K21.0 Gastro-esophageal reflux disease with esophagitis; K44.9 Diaphragmatic hernia without obstruction or gangrene; K21.9 Gastro-esophageal reflux disease without esophagitis; D64.9 Anemia, unspecified; I10 Essential (primary) hypertension; J45.909 Unspecified asthma, uncomplicated; M19.90 Unspecified osteoarthritis, unspecified site; G47.30 Sleep apnea, unspecified; Z98.890 Other specified postprocedural states; Z96.653 Presence of artificial knee joint, bilateral; Z90.710 Acquired absence of both cervix and uterus; Z87.442 Personal history of urinary calculi; Z88.0 Allergy status to penicillin; Z88.8 Allergy status to other drugs, medicaments and biological substances; Z79.899 Other long term (current) drug therapy
CPT/HCPCS: 62110; 62900

== ENCOUNTER → 2019-07-18 | Outpatient (CLI) | payer OTHER ==
[~2019-07-18] MED LIST changes: +DOXYCYCLINE 10100 MG PO; -NEURONTIN 300300 M1 PO; +NEURONTIN 300M300 M2 PO; +NORCO 5-325 TA1 EAC1 PO
[2019-07-18 15:42] LABS: ABSOLUTE NEUTROPHILS 5.7 thou/uL (1.4-8.2); BASOPHILS 0.3 % (0.0-2.0); HEMATOCRIT 46.7 % (37.0-47.0); HEMOGLOBIN 15.4 gm/dL (12.0-15.0); LYMPHOCYTES 24.6 % (24.0-44.0); MCH 30.2 pg (26.0-34.0); MCV 91.4 fL (80.0-100.0); MONOCYTES 7.6 % (1.0-8.0); PLATELET COUNT 380 thou/uL (150-400); POLYS 66.5 % (36.0-66.0); WBC 8.6 thou/uL (4.0-11.0)
[2019-07-18 15:49] LABS: URINE BILIRUBIN NEGATIVE (Negative); URINE BLOOD NEGATIVE (Negative); URINE CLARITY CLEAR; URINE COLOR YELLOW; URINE GLUCOSE-RANDOM* NEGATIVE (Negative); URINE KETONES NEGATIVE (Negative); URINE NITRITE-REFLEX NEGATIVE (Negative); URINE PROTEIN (DIPSTICK) NEGATIVE (Negative); URINE UROBILINOGEN 0.2 E.U./dl (0.2-1.0)
[2019-07-18 15:51] LABS: URINE LEUKOCYTES-REFLEX 1+ (Negative)
[2019-07-18 16:01] LABS: BACTERIA-REFLEX 1-9 Few /HPF (None Seen); CASTS None Seen /LPF (None Seen); CRYSTALS None Seen /LPF (None Seen); SQUAMOUS 0-3 Few /LPF (0-3); URINE RBC None Seen /HPF (0-2); URINE WBC-REFLEX 6-15 Few /HPF (0-5)
[2019-07-18 16:03] LABS: ALBUMIN 4.1 g/dL (3.4-5.0); ANION GAP 10 mmol/L (7-16); BUN 11 mg/dL (7-18); CHLORIDE 101 mmol/L (98-107); CHOLESTEROL 217 mg/dL (<200); CO2 28 mmol/L (21-32); CREATININE 0.8 mg/dL (0.6-1.0); GLUCOSE 72 mg/dL (74-106); HDL CHOLESTEROL 32 mg/dL (>40); LDL CHOLESTEROL 162 mg/dL (<100); POTASSIUM 4.3 mmol/L (3.5-5.1); SGOT 21 U/L (15-37); SGPT 40 U/L (30-65); SODIUM 139 mmol/L (136-145); TC:HDL 6.8 Ratio (Not establshd); TOTAL BILIRUBIN 0.7 mg/dL (0.2-1.0); TOTAL PROTEIN 6.9 g/dL (6.4-8.2); TRIGLYCERIDE 118 mg/dL (<150); VLDL 24 mg/dL (<40)
[2019-07-19 02:07] LABS: GLYCOHEMOGLOBIN (HGB A1C) 5.8 % (4.8-5.6)
== END ==
LOC: RAD 08:40 → LABMALL 08:40
PROVIDERS: ATTEND Family Medicine
DX: Z12.31 Encounter for screening mammogram for malignant neoplasm of breast (principal); L03.313 Cellulitis of chest wall; N39.41 Urge incontinence; E55.9 Vitamin D deficiency, unspecified; I10 Essential (primary) hypertension

== ENCOUNTER 2019-08-03 06:11 | Day surgery (SDC) | payer OTHER ==
[~2019-08-03] VITALS: Ht 154.9 cm; Wt 73.9 kg
[~2019-08-03 06:11] MED LIST changes: -NORCO 5-325 TA1 EAC1 PO
[2019-08-03 06:40] VITALS: BP 129/79
[2019-08-03 14:15] VITALS: BP 112/75
--- NOTE | 2019-08-03 18:16 | NUR ---
PT ASSUMED FROM OR AT 1405. A&Ox4. 5 LAP SITES, DRY AND INTACT. PT TOLERATING CLEAR LIQUIDS WELL. ADMISSION COMPLEETED. FALL PROTOCOL IN PLACE. NO COMPLAINTS OF N/V. VITALS SIGNS STABLE EXCEPT O2 AT 95%. PT STILL ON 2L. CPAP FROM HOME IN THE ROOM.NO PAIN MEDICATION GIVEN. NO COMPLAINTS OF PAIN. COMFORTABLY RESTING. WILL CONTINUE TO MONITOR.
[2019-08-03 19:22] VITALS: BP 115/75
--- NOTE | 2019-08-04 03:23 | NUR ---
RECIEVED CARE OF THIS PATIENT AT 1900. PATIENT ALERT AND ORIENTED X4. C/O PAIN BUT SIS NOT WANT IV MED. CALLED DR TO GET ORDER FOR PO PAIN MED. UP WITH SBA. HAS 5 AM INCISIONS ON UPPER ABD WITH DERMABOND. EDGES WELL APPROXIMATED, NO S/S OF INFECTION NOTED. HAD IV INFUSING BUT IT WAS DC'D. DENIES N/V. SLEPT OFF AND ON DURING NIGHT.
[2019-08-04 04:05] VITALS: BP 115/69
[2019-08-04] MEDS ORDERED: NORCO 5-325 TA1 EAC1 PO (08:22)
[2019-08-04 08:46] VITALS: BP 113/70
--- NOTE | 2019-08-04 10:21 | NUR ---
chart review. cm consulted. cm visited with lino via phone call. she is a & o x 3, pleasant and able to make her needs know. intro to cm and dcp. lino reported " independent, manage own medication, and drives vehicle. works outside the home. no concerns or complaints to report"/lino. anticipated home no needs. will cont following as needed.
[2019-08-04 10:25] VITALS: BP 113/70
--- NOTE | 2019-08-04 12:57 | NUR ---
PT CARE ASSUMED AT 0700. A&Ox4. PAIN MANAGED WELL WITH PAIN MEDICATION. IV REMOVED. PT TOLERATING ROOM AIR WELL WITH NO FURTER NEED OF A NASAL CANULA. SCD'S IN PLACE. FALL PROTOCOL IN PLACE. LAPSITES WITH NO REDNESS OR SIGNS OF INFECTION. DISCHARGE INSTRUCTIONS GIVEN. SENT HOME WITH [employer] SCRIPT. PT HAS NO FURTHER QUESTIONS.
--- NOTE | 2019-08-14 06:36 | O ---
[facility] [place] [address] OPERATIVE REPORT Name: MACIE PATINO Room #: DEP [facility].#: [id number] Admission: 08/03/19 Attend Phys: Arnold Rdz, Discharge: 08/04/19 Date of : 54 Report #: [id number] THIS REPORT FOR: cc: Kirit Nova MD, Neal A. MD Patterson,Arnold Pink MD ~ CC: Arnold Nova PREOPERATIVE DIAGNOSIS: Chronic refractory gastroesophageal reflux disease with history of past David fundoplication. POSTOPERATIVE DIAGNOSES: 1. Gastroesophageal reflux disease with history of David fundoplication. 2. Hiatal hernia. 3. Slipped David fundoplication. OPERATION: 1. Laparoscopic repair of a paraesophageal hernia without mesh implantation. 2. Laparoscopic placement of LINX antireflux device. SURGEON: Arnold Rdz MD ANESTHESIA: General. ESTIMATED BLOOD LOSS: Minimal. SPECIMEN: None. DESCRIPTION OF PROCEDURE: After informed consent was obtained, the patient was brought to the operating room and placed supine. SCDs were placed and working, preoperative antibiotics were administered, general anesthesia was induced. The abdomen was prepped and draped in the usual sterile fashion. A 5 mm incision was made in the left upper quadrant. A 5 mm trocar was placed under direct vision. Pneumoperitoneum was established. A right upper quadrant 5 mm trocar was placed under direct vision. I then placed two more laparoscopic trocars in a line across the abdomen approximately 10 cm apart. A left-sided 8 mm trocar was placed and a right-sided 5 mm trocar was placed. The patient was placed in the reverse Trendelenburg position. A Rhonda retractor was inserted in the epigastrium and reflected the liver anteriorly and superiorly. This allowed visualization of the hiatus. She had scarring in her hiatus consistent with a previous David fundoplication. I began by incising the adhesions to the right july. These were taken down sharply and with the EnSeal device. There was good hemostasis. I was unable to fully reduce the hiatal hernia and the David fundoplication had slipped up into the chest as well. This was all reduced. I was able to isolate the distal esophagus and a [facility] [address] [place] [address] OPERATIVE REPORT Name: MACIE PATINO Room #: DEP [facility].#: [id number] Admission: 08/03/19 Attend Phys: Arnold Rdz, Discharge: 08/04/19 Date of : 54 Report #: [id number] [place] drain was placed around the distal esophagus. Full mediastinal dissection was then undertaken. The esophagus was retracted anteriorly and posteriorly and all of the attachments to the esophagus were taken down to the pleura on each side. The attachments of the esophagus to the aorta were taken down with the EnSeal device posteriorly along the esophagus. After this had been done, there was excellent length on the distal esophagus. A cruroplasty was then performed using a eljgzg-ko-rwher 2-0 Ethibond suture. This closed the defect nicely. I then made a window between the posterior vagus nerve and the esophagus. A LINX sizer was then placed. This was a #17 LINX. Therefore, a 17-LINX was brought into the field. It was placed into the abdomen. I placed it anterior to the posterior vagus nerve. The LINX was clasped together. This did not appear too tight or too loose. The GE junction was then allowed to go back into its normal anatomic position. The liver was placed back into its normal position. The ports were then removed under direct vision. The skin was closed with 4-0 Monocryl. Incisions were sealed with Dermabond. COMPLICATIONS: None. DISPOSITION: The patient was taken to recovery in satisfactory condition. <ELECTRONICALLY SIGNED> By: Arnold Rdz MD 08/14/19 0636 1228 1245 Arnold Rdz MD /nt
== END 2019-08-04 12:08 | disposition home or self-care (01) ==
LOC: OR 06:11 → TBA 06:12 → OR 11:17 → 4S 14:26 → OR 15:44
PROVIDERS: ATTEND Surgery
DX: K95.09 Other complications of gastric band procedure (principal); K44.9 Diaphragmatic hernia without obstruction or gangrene; K21.9 Gastro-esophageal reflux disease without esophagitis; I10 Essential (primary) hypertension; J45.909 Unspecified asthma, uncomplicated; G47.30 Sleep apnea, unspecified; Z98.890 Other specified postprocedural states; Z79.899 Other long term (current) drug therapy; Z11.59 Encounter for screening for other viral diseases; Z96.653 Presence of artificial knee joint, bilateral; Z87.442 Personal history of urinary calculi; Z90.710 Acquired absence of both cervix and uterus; Z88.0 Allergy status to penicillin; Z88.8 Allergy status to other drugs, medicaments and biological substances
CPT/HCPCS: 10102; 50010; 50101; 50249; 50386; 50555; 50558; 51489; 52265; 52266; 53307; 53310; 54022; 54118; 55245; 56462; 56525; 56526; 56527; 57092; 58104; 62110; 62900; 70005

== ENCOUNTER → 2020-01-03 | Outpatient (CLI) | payer OTHER ==
[~2020-01-03] MED LIST changes: +NORCO 5-325 TA1 EAC1 PO
[2020-01-03 12:23] LABS: ABSOLUTE NEUTROPHILS 6.6 thou/uL (1.4-8.2); BASOPHILS 0.5 % (0.0-2.0); EOSINOPHILS 0.5 % (0.0-3.0); HEMATOCRIT 34.9 % (37.0-47.0); HEMOGLOBIN 11.3 gm/dL (12.0-15.0); LYMPHOCYTES 26.3 % (24.0-44.0); MCH 25.8 pg (26.0-34.0); MCHC 32.2 g/dL (28.0-37.0); MCV 80.1 fL (80.0-100.0); MONOCYTES 7.9 % (1.0-8.0); PLATELET COUNT 561 thou/uL (150-400); POLYS 64.8 % (36.0-66.0); RBC 4.36 mil/uL (4.20-5.00); RDW 14.9 % (10.5-14.5); WBC 10.2 thou/uL (4.0-11.0)
[2020-01-03 12:39] LABS: ALBUMIN 4.3 g/dL (3.4-5.0); ANION GAP 8 mmol/L (7-16); BUN 16 mg/dL (7-18); CALCIUM 8.9 mg/dL (8.5-10.1); CHLORIDE 104 mmol/L (98-107); CHOLESTEROL 196 mg/dL (<200); CO2 27 mmol/L (21-32); CREATININE 0.7 mg/dL (0.6-1.0); GLUCOSE 99 mg/dL (74-106); HDL CHOLESTEROL 63 mg/dL (>40); LDL CHOLESTEROL 121 mg/dL (<100); POTASSIUM 4.6 mmol/L (3.5-5.1); SGOT 18 U/L (15-37); SGPT 28 U/L (30-65); SODIUM 139 mmol/L (136-145); TC:HDL 3.1 Ratio (Not establshd); TOTAL BILIRUBIN 0.4 mg/dL (0.2-1.0); TOTAL PROTEIN 7.4 g/dL (6.4-8.2); TRIGLYCERIDE 64 mg/dL (<150); VLDL 13 mg/dL (<40)
[2020-01-04 02:06] LABS: GLYCOHEMOGLOBIN (HGB A1C) 5.7 % (4.8-5.6)
== END ==
LOC: LAB 11:49
PROVIDERS: ATTEND Nurse Practitioner
DX: I10 Essential (primary) hypertension (principal); R73.09 Other abnormal glucose

== ENCOUNTER → 2020-01-24 | Outpatient (CLI) | payer OTHER | LOC: LAB 01-23 07:51 | PROVIDERS: ATTEND Internal Medicine Gastroenterology | DX: R19.7 Diarrhea, unspecified (principal) ==

== ENCOUNTER → 2020-02-06 | Outpatient (CLI) | payer OTHER ==
[2020-02-06 09:18] LABS: CREATININE 0.7 mg/dL (0.6-1.0)
[2020-02-06 10:01] LABS: ABSOLUTE RETIC COUNT 0.0917 10^6/uL; OBSERVED RETIC COUNT 2.17 % (0.6-2.6)
[2020-02-06 10:35] LABS: % SATURATION 6 % (20-39); IRON 23 ug/dL (50-170); TIBC 402 ug/dL (250-450)
[2020-02-06 10:53] LABS: FOLIC ACID 8.7 ng/mL (8.6-58.9)
[2020-02-06 19:06] LABS: HAPTOGLOBIN 140 mg/dL (37-355)
[2020-02-07 14:07] LABS: ANA INTERPRETATION Negative (Negative)
== END ==
LOC: CAT 08:05
PROVIDERS: ATTEND Internal Medicine Hematology & Oncology
DX: K57.30 Diverticulosis of large intestine without perforation or abscess without bleeding (principal); D47.3 Essential (hemorrhagic) thrombocythemia; D72.828 Other elevated white blood cell count; D64.9 Anemia, unspecified; N28.1 Cyst of kidney, acquired; K44.9 Diaphragmatic hernia without obstruction or gangrene

== ENCOUNTER → 2020-03-05 | Outpatient (CLI) | payer OTHER ==
[~2020-03-05] VITALS: Ht 154.9 cm; Wt 76.2 kg
[~2020-03-05] MED LIST changes: +WELLBUTRIN SR150 MG PO
[2020-03-05 14:10] VITALS: BP 129/86
[2020-03-05 15:00] VITALS: BP 108/75
[2020-03-05 15:30] VITALS: BP 115/78
--- NOTE | 2020-03-05 16:06 | NUR ---
IN FOR 1ST OF 2 INJECTAFER INFUSIONS FOR IRON DEFICIENCY ANEMIA. STATED FEELING REALLY TIRED ALL THE TIME. ADMISSION HISTORY AND ASSESSMENT COMPLETED. MEDICATION RECONCILED. IV PLACED IN RT HAND AND INFUSED INJECTAFER OVER 30 MINUTES. TOLERATED WELL. OBSERVED FOR 30 MINUTES. POST BP STABLE. REMOVED IV AND DISMISSED IN STABLE CONDITION. TO RETURN NEXT WEDNESDAY FOR 2ND AND FINAL INFUSION.
== END ==
LOC: OPONC 13:55
PROVIDERS: ATTEND Internal Medicine Hematology & Oncology
DX: D50.9 Iron deficiency anemia, unspecified (principal)
CPT/HCPCS: 95000

== ENCOUNTER → 2020-03-12 | Outpatient (CLI) | payer OTHER ==
[~2020-03-12] MED LIST changes: +PROLIA60 MG/1 ML SUBQ; +VITAMIN B-125000 MCG SUBLING; +VITAMIN D21250 MCG PO
[2020-03-12 14:05] VITALS: BP 136/82
[2020-03-12 15:23] VITALS: BP 126/76
--- NOTE | 2020-03-12 15:46 | NUR ---
IN FOR 2ND INJECTAFER INFUSION. STATED DOES NOT FEEL ANY LESS TIRED SINCE 1ST DOSE LAST WEEK. DENIED ANY ADVERSE REACTION TO 1ST INFUSION. TOLERATED INFUSION TODAY WITHOUT INCIDENT. OBSERVED FOR 30 MINUTES. POST BP GOOD. REMOVED IV AND DISMISSED IN STABLE CONDITION.
== END ==
LOC: OPONC 10:16
PROVIDERS: ATTEND Internal Medicine Hematology & Oncology
DX: D50.9 Iron deficiency anemia, unspecified (principal)
CPT/HCPCS: 95000

== ENCOUNTER → 2020-04-03 | Outpatient (CLI) | payer OTHER ==
[~2020-04-03] MED LIST changes: +VITAMIN B-125000 MCG PO; -VITAMIN B-125000 MCG SUBLING
== END ==
LOC: LAB 14:46
PROVIDERS: ATTEND Internal Medicine Gastroenterology
DX: Z20.822 Contact with and (suspected) exposure to COVID-19 (principal)

== ENCOUNTER → 2020-04-04 | Outpatient (CLI) | payer OTHER | LOC: ULTRA 08:54 | PROVIDERS: ATTEND Nurse Practitioner | DX: N64.89 Other specified disorders of breast (principal) ==

== ENCOUNTER → 2020-04-08 | Outpatient (CLI) | payer OTHER ==
[~2020-04-08] VITALS: Ht 152.4 cm; Wt 77.1 kg
--- NOTE | 2020-04-11 22:10 | PATH ---
[facility] [place] [address] PATHOLOGY RPT PROCEDURE Name: MACIE PATINO Room #: REG [facility].#: [id number] Admission: 04/08/20 Date of : 54 Discharge: Report #: [id number] Path Case #: [id number] [facility] Accession Number: [id number] . 01 Material submitted: . PART A: gastrointestinal site - SMALL BOWEL BIOPSY PART B: gastrointestinal site - RANDOM GASTRIC BIOPSY PART C: gastrointestinal site - ESOPHAGEAL BIOPSY PART D: colon - RANDOM COLON BIOPSY PART E: colon - ASCENDING COLON POLYP X2. Modifiers: ascending PART F: colon - TRANSVERSE COLON POLYP X4. Modifiers: transverse . 01 Clinical history: . GERD/SCREENING CRC . 02 Diagnosis: A. Small bowel, endoscopic biopsy: - Duodenal mucosa with focal dilatation of lymphatics within duodenal villous tips. - Negative for villous atrophy, active inflammation, dysplasia, and malignancy. - Please see comment. . B. Stomach "gastric random", endoscopic biopsy: - Gastric antral and oxyntic mucosa with features of reactive gastropathy and background mild to moderate chronic inflammation. - Negative for active inflammation, intestinal metaplasia, dysplasia and malignancy. - Negative for Helicobacter pylori. . C. Esophagus, endoscopic biopsy: - Esophageal squamous epithelium with features of reactive gastropathy. - Negative for intestinal metaplasia, dysplasia and malignancy. . D. Large bowel "random colon", endoscopic biopsy: - Large bowel mucosa without significant pathologic alteration. . E. Large bowel "ascending colon polyp x2", endoscopic biopsy: - Tubular adenoma; negative for high-grade dysplasia and malignancy. . F. Large bowel "transverse colon polyp x4", endoscopic biopsy: - Tubular adenoma; negative for high-grade dysplasia and malignancy. . (BREANA:yves; 04/11/2020) MBR 04/11/2020 2147 Local . [address] [address] PATHOLOGY RPT PROCEDURE Name: MACIE PATINO Room #: REG CLI [facility].#: [id number] Admission: 04/08/20 Date of : 54 Discharge: Report #: [id number] Path Case #: [id number] Comment: The small bowel biopsies (specimen A) show elongate duodenal villi, with appropriate architecture and no significant inflammation. However, there is focal dilatation of lymphatic channels within the distal villous tips. This histologic pattern can be seen in the setting of intestinal lymphangiectasia, either primary or secondary. Clinical correlation is suggested. (BREANA:yves; 04/11/2020) . 02 Electronically signed: . Josefina Gallardo MD, Pathologist NPI- [id number] . 01 Gross description: . A. The specimen is received in formalin, labeled "Dost, Macie, small bowel BX" and consists of multiple fragments of banks tissue measuring 1.2 x 0.8 x 0.3 cm in aggregate which are entirely submitted in A1. . B. The specimen is received in formalin, labeled "Dost, Macie, random gastric BX" and consists of multiple fragments of banks tissue measuring 1.0 x 0.6 x 0.3 cm in aggregate which are entirely submitted in B1. . C. The specimen is received in formalin, labeled "Dost, Macie, esophageal BX" and consists of 3 fragments of pink tissue measuring between 0.3 x 0.2 cm and 0.6 x 0.3 cm which are entirely submitted in C1. . D. The specimen is received in formalin, labeled "Dost, Macie, random colon BX" and consists of multiple fragments of banks tissue measuring 1.1 x 0.6 x 0.3 cm in aggregate which are entirely submitted in D1. . E. The specimen is received in formalin, labeled "Dost, Macie, ascending colon polyp" and consists of 2 segments of banks tissue measuring 0.3 x 0.3 cm and 0.6 x 0.3 cm which are entirely submitted in E1. . F. The specimen is received in formalin, labeled "Dost, Macie, transverse colon polyp" and consists of 3 segments of banks tissue measuring between 0.3 x 0.2 cm and 1.1 x 0.4 cm which are entirely submitted in F1. (LILLIAMY; 04/09/2020) SYU/SYU 04/09/2020 1229 Local . 02 Microscopic: . Immunohistochemical stain results (properly controlled): Helicobacter pylori (B1) - negative for organisms. (BREANA:yves; 04/11/2020) . 02 Pathologist provided ICD-10: K29.50, D12.2, D12.3, K21.[address] . [address] [address] PATHOLOGY RPT PROCEDURE Name: MACIE PATINO Room #: REG [facility].#: [id number] Admission: 04/08/20 Date of : 54 Discharge: Report #: [id number] Path Case #: [id number] [facility] . [id number], [id number] Specimen Comment: Report sent to / Performed at: [address] [facility] [address], [place], [place] [id number] MD Richy Crowell MD Phone: [phone] Performed at: [address] [facility] [address] [id number] MD Ngozi Moreira MD Phone: [phone]
== END | disposition home or self-care (01) ==
LOC: GI 08:24
PROVIDERS: ATTEND Internal Medicine Gastroenterology
DX: D50.9 Iron deficiency anemia, unspecified (principal); D12.2 Benign neoplasm of ascending colon; D12.3 Benign neoplasm of transverse colon; K57.30 Diverticulosis of large intestine without perforation or abscess without bleeding; K29.60 Other gastritis without bleeding; K31.9 Disease of stomach and duodenum, unspecified; R13.10 Dysphagia, unspecified; K44.9 Diaphragmatic hernia without obstruction or gangrene; I10 Essential (primary) hypertension; M19.90 Unspecified osteoarthritis, unspecified site; J45.909 Unspecified asthma, uncomplicated; G47.30 Sleep apnea, unspecified; Z98.890 Other specified postprocedural states; Z79.899 Other long term (current) drug therapy; Z88.0 Allergy status to penicillin; Z88.8 Allergy status to other drugs, medicaments and biological substances; Z96.653 Presence of artificial knee joint, bilateral; Z87.442 Personal history of urinary calculi
CPT/HCPCS: 62110; 62900

== ENCOUNTER → 2020-04-29 | Outpatient (CLI) | payer OTHER | LOC: RAD 09:27 | PROVIDERS: ATTEND Internal Medicine Gastroenterology | DX: K21.9 Gastro-esophageal reflux disease without esophagitis (principal); R13.10 Dysphagia, unspecified; R19.7 Diarrhea, unspecified; K44.9 Diaphragmatic hernia without obstruction or gangrene ==

== ENCOUNTER → 2020-06-27 | Outpatient (CLI) | payer OTHER ==
[2020-06-27 11:38] LABS: HEMOGLOBIN 13.9 gm/dL (12.0-15.0); RBC 4.63 mil/uL (4.20-5.00)
[2020-06-27 11:40] LABS: ABSOLUTE NEUTROPHILS 5.2 thou/uL (1.4-8.2); BASOPHILS 0.9 % (0.0-2.0); EOSINOPHILS 0.1 % (0.0-3.0); HEMATOCRIT 41.8 % (37.0-47.0); LYMPHOCYTES 25.3 % (24.0-44.0); MCH 30.1 pg (26.0-34.0); MCHC 33.3 g/dL (28.0-37.0); MCV 90.3 fL (80.0-100.0); MONOCYTES 6.7 % (1.0-8.0); PLATELET COUNT 343 thou/uL (150-400); RDW 13.1 % (10.5-14.5); WBC 7.7 thou/uL (4.0-11.0)
== END ==
LOC: LAB 10:59
PROVIDERS: ATTEND Nurse Practitioner
DX: D50.9 Iron deficiency anemia, unspecified (principal); D47.3 Essential (hemorrhagic) thrombocythemia

== ENCOUNTER → 2020-11-14 | Outpatient (CLI) | payer OTHER ==
[2020-11-15 01:06] LABS: GLYCOHEMOGLOBIN (HGB A1C) 5.8 % (4.8-5.6)
== END ==
LOC: LAB 08:31
PROVIDERS: ATTEND Nurse Practitioner
DX: E53.8 Deficiency of other specified B group vitamins (principal); R20.2 Paresthesia of skin

== ENCOUNTER → 2020-11-20 | Outpatient (CLI) | payer OTHER | LOC: BC 14:28 | PROVIDERS: ATTEND Family Medicine | DX: Z12.31 Encounter for screening mammogram for malignant neoplasm of breast (principal); N64.89 Other specified disorders of breast ==